=== PATIENT | female | born 1985 | race Hispanic/Latino ===

== ENCOUNTER 2017-08-27 22:14 | Emergency (ER) | payer SELFPAY ==
[2017-08-28 01:00] LABS: APPEARANCE,URINE Cloudy (CLEAR); BILIRUBIN,URINE Negative (NEGATIVE); COLOR,URINE Yellow (YELLOW); GLUCOSE, URINE (UA) Negative (NEGATIVE); KETONES,URINE Negative (NEGATIVE); LEUKOCYTE ESTERASE ,URINE Moderate (NEGATIVE); NITRATE,URINE Negative (NEGATIVE); OCCULT BLOOD,URINE Negative (NEGATIVE); PH,URINE 8.5 (5.0-8.0); PROTEIN,URINE Trace (NEGATIVE)
[2017-08-28 01:03] LABS: HCG,QUAL RESULT NEGATIVE (NEGATIVE)
[2017-08-28 01:05] LABS: AMORPHOUS SEDIMENT,UR Many /LPF (None Seen); BACTERIA,URINE Few /HPF (None Seen); MUCUS,URINE Moderate LPF (None Seen); RBC,URINE None Seen /HPF (0-1); SQUAMOUS EPITHELIAL CELL,UR Moderate /HPF (0-2)
[2017-08-28] MEDS ORDERED: AMOXICILLIN/POTASSIUM CLAV 500-125 TABLET PO ONE (01:30)
[2017-08-28] MEDS ORDERED: DEXAMETHASONE SOD PHOSPHATE 10MG/ML 1ML VIAL ONE (01:30)
[2017-08-28] MEDS ORDERED: KETOROLAC TROMETHAMINE 60 MG/2 ML VIAL ONE (01:30)
== END 2017-08-28 02:23 | disposition home or self-care (01) ==
LOC: EDH 22:14
DX: J01.90 Acute sinusitis, unspecified (principal); Z72.0 Tobacco use
CPT/HCPCS: 81001; 81025; 96372 ×2; 99284; J1100; J1885

== ENCOUNTER 2018-08-25 21:46 | Emergency (ER) | payer MEDICAID | END 2018-08-25 22:26 | disposition home or self-care (01) | LOC: EDH 21:46 | DX: G43.909 Migraine, unspecified, not intractable, without status migrainosus (principal); F41.9 Anxiety disorder, unspecified; F32.9 Major depressive disorder, single episode, unspecified; Z72.0 Tobacco use ==